=== PATIENT | female | born 1985 ===

== ENCOUNTER → 2025-08-13 12:05 | Outpatient (CLI) | payer OTHER | END | disposition home or self-care (01) | LOC: PRENATAL 12:05 | PROVIDERS: ATTEND Obstetrics & Gynecology Maternal & Fetal Medicine | DX: O36.80X0 Pregnancy with inconclusive fetal viability, not applicable or unspecified (principal); Z36.82 Encounter for antenatal screening for nuchal translucency; Z14.8 Genetic carrier of other disease; O09.511 Supervision of elderly primigravida, first trimester; Z3A.12 12 weeks gestation of pregnancy ==